=== PATIENT | female | born 1945 | race Caucasian/White ===

== ENCOUNTER 2022-08-02 14:17 | Day surgery (SDC) | payer MEDICARE, BC, SELFPAY ==
[2022-08-02 14:30] VITALS: BP 136/70; PULSE 82; RESP 18; TEMP 36.2; O2SAT 96; BMI 28.3
[2022-08-02 14:44] VITALS: BP 143/73; PULSE 83; RESP 18; O2SAT 97
[2022-08-02 14:45] VITALS: BP 143/73; PULSE 83; RESP 18; O2SAT 97
[2022-08-02 14:48] VITALS: BP 150/64; PULSE 77; RESP 18; O2SAT 96
--- NOTE | 2022-08-02 14:55 | P.PCN_ITS ---
Procedure Date: 08/02/22 Time: 14:45 Anesthesiologist:: Amrit aWlton CRNA Complications:: None Pre-procedure Diagnosis:: Left shoulder osteoarthritis Post-procedure Diagnosis:: Same. Indications for Procedure:: Patient is a very pleasant 76-year-old female that comes our clinic today with chronic left shoulder pain. Secondary to a left osteoarthritis. This has been chronic for her for quite some time. Procedure Details:: Procedure Details: Left shoulder intra-articular injection Informed consent was obtained risk and benefits of the procedure were explained to the patient. Patient was taken to the procedure room. The left shoulder was prepped using ChloraPrep. A 25-gauge needle was used first anteriorly, laterally, and then posteriorly to inject 10 mL bupivacaine 0.25% and Depo- Medrol 40 mg. Patient tolerated procedure well with no complications. Plan and Disposition:: Patient was discharged without incident.
== END 2022-08-02 14:48 | disposition home or self-care (01) ==
LOC: SC.PAINP 14:19
PROVIDERS: Visit Provider Nurse Anesthetist, Certified Registered
DX: M19.012 Primary osteoarthritis, left shoulder (principal); M25.512 Pain in left shoulder
CPT/HCPCS: 20610; J1040

== ENCOUNTER 2022-09-06 10:29 | Day surgery (SDC) | payer MEDICARE, BC, SELFPAY ==
[2022-09-06 10:41] VITALS: BP 146/68; PULSE 78; RESP 18; TEMP 36.2; O2SAT 95; BMI 28.8
[2022-09-06 10:52] VITALS: BP 141/59; PULSE 73; RESP 18; O2SAT 95
--- NOTE | 2022-09-06 10:52 | P.PCN_ITS ---
Procedure Date: 09/06/22 Time: 10:40 Anesthesiologist:: Amrit Walton CRNA Complications:: None Pre-procedure Diagnosis:: Osteoarthritis left shoulder. Post-procedure Diagnosis:: Same. Indications for Procedure:: Very pleasant 76-year-old female that comes our clinic today for repeat left i ntra-articular shoulder injection. Patient had left shoulder injected several weeks ago with 2 weeks of significant improvement in terms of her left shoulder pain. Patient has good strength in her left arm. However, patient has limited range of motion due to pain in the left shoulder. Procedure Details:: Details of the procedure explained to the patient. The patient taken the procedure room placed in sitting position. The area over the posterior shoulder joint was cleaned using chlorhexidine as a cleansing solution. Using a 25-gauge inch and half needle the left shoulder joint was accessed with ease from a posterior approach. After negative aspiration a cc of a solution containing 0.25% Marcaine +1% lidocaine and 40 mg Depo-Medrol was injected. Patient tolerated procedure without difficulty. No complications Plan and Disposition:: Patient was discharged without incident.
== END 2022-09-06 10:52 | disposition home or self-care (01) ==
PROVIDERS: Visit Provider Nurse Anesthetist, Certified Registered
DX: M19.012 Primary osteoarthritis, left shoulder (principal); M25.512 Pain in left shoulder
CPT/HCPCS: 20610; J1040

== ENCOUNTER 2023-08-31 08:39 | Outpatient (CLI) | payer MEDICARE, BC, SELFPAY ==
--- NOTE | 2023-08-31 08:46 | CT_ITS ---
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 A noncontrast coronary calcium scan was performed. A CT attenuation threshold of 130 Hounsfield units (HU) was used for the detection of calcium in contiguous voxels of 1 sq mm in area to be counted as individual lesions. Bolus tracking in the ascending aorta with a threshold of 180 HU was performed. Immediately afterwards, ECG synchronized cardiac CT was then performed from the cardiac base to apex using retrospective gating with ECG tube current modulation. A total of 85 mL of Isovue 370 mg/mL contrast medium was administered at 5 mL/sec followed by a saline flush using a biphasic injection protocol. A tube voltage of 120 KVp was used. The patient received the following medications prior to the cardiac CT. 25 mg of oral metoprolol 0.8 mg of sublingual nitroglycerin The average heart rate at the time of acquisition was 48 bpm and regular. Image Reconstruction Transaxial images were reconstructed at 0.67 mm slide thickness. Data was reviewed interactively on an advanced workstation capable of 2 and 3-dimensional displays in all conventional reconstruction formats, including multiplanar reformations, maximum intensity projections, curved multiplanar reformations, and volume rendered reconstructions. When applicable, selected routine images describing the relevant coronary anatomy and pathology were saved and sent to PACS. Complications None Technical Quality Overall image quality was good. Coronary artery opacification was adequate. Total DLP (Dose-Length Product) is 1844.0 mGy-cm. The reported value represents the total of one or more individual components during the CT acquisition of this date and at this time, and as such, the same value may appear in more than one CT report depending on the interpreting/reporting physicians. COMPARISON None FINDINGS CT Coronary Calcium Scoring LMA (Left Main Artery) = 32 LAD (Left Anterior Descending) = 25 LCX (Left Coronary Circumflex) = 33 RCA (Right Coronary Artery) = 0 Total Calcium Score = 90 using the AJ-130 method. The observed calcium score of 90 is at 54th percentile for subjects of the same age, sex, and race/ethnicity. The interpretation of the calcium heart score is based on the following continuum*: 0 = no calcified plaque detected (risk of coronary artery disease is very low ??? less than 5%) 1-10 = calcium detected in extremely minimal levels (risk of coronary diseases is still low ??? less than 10%) 11-100 = mild levels of plaque detected with certainty (mild or minimal narrowing of heart arteries is likely) 101-400 = definite,at least moderate levels of plaque detected (relatively high risk of a heart attack within 3-5 years) >401-999 = extensive levels of plaque detected (high risk of heart attack, high levels of vascular disease are present, high likelihood of at least one significant coronary narrowing) *The calcium heart score quantifies the burden of coronary calcification/plaque in the coronary arteries. The calcium heart score is not able to evaluate the presence or burden of non-calcified (i.e. soft) plaque. There is also identifiable calcification in ascending and descending thoracic aorta. Coronary CT Angiography The coronary arterial system is right dominant. Quantitative Stenosis Grading: Left Main (LM): The left main originates normally from the left sinus of Valsalva. The LM bifurcates into the left anterior descending artery and left circumflex artery. There is calcification noted at the ostial LM, but with no luminal stenosis. Left Anterior Descending (LAD) and Diagonal Branches: The LAD gives off 2 diagonal branch(es). There is calcification noted in the proximal LAD, but with no stenosis. There is no evidence of LAD-myocardial bridge. Left Circumflex (LCX) and Obtuse Marginals (OM): The LCX gives off 2 Obtuse Marginal (OM) branch(es). There is mixed calcified/noncalcified plaque noted in the proximal LCx with up to 25-49% luminal stenosis. Right Coronary Artery (RCA): The RCA originates normally from the right sinus of Valsalva. The RCA gives off a posterior descending artery (PDA) and posterolateral (PL) branches. The RCA and its branches are patent with no evidence of atherosclerosis. Non-Coronary Cardiac Findings: Analysis of the left ventricular (LV) structure and function was performed after 3-D reconstruction of the LV from axial images, with user-corrected automatic contouring for assessment of LV volumes and user-defined reconstruction from oblique planes for measurement of 3-D cardiac structure and function. -The left ventricle systolic function is normal. -There is no left atrial appendage filling defect. Two right pulmonary veins and two left pulmonary veins drain normally into the left atrium. -No pericardial thickening or calcification. -Central and branch pulmonary arteries in the [id number] are unremarkable. -Thoracic aorta within the visualized thoracic aortic-branches in the [id number] is unremarkable. Extracardiac Structures No significant extra-cardiac findings. Note, however, that this study is focused on the cardiac findings. IMPRESSION -Presence of coronary calcification with an Agatston score = 90 using the AJ-130 method. -The observed calcium score of 90 is at 54th percentile for subjects of the same age, sex, and race/ethnicity. -Mild atherosclerosis in the LM, LAD, and LCX, but no evidence of significant flow-limiting atherosclerosis. -CAD-RADS 2. Management recommendations per ACC/AHA guidelines*, as clinically appropriate. *Recommendations: CAD RADS 0: Reassurance. Consider non-atherosclerotic causes. CAD RADS 1: Consider non-atherosclerotic causes of chest pain. Consider preventive therapy and risk factor modification. CAD RADS 2: Consider non-atherosclerotic causes of chest pain. Consider preventive therapy and risk factor modification, particularly for patients with nonobstructive plaque in multiple segments. CAD RADS 3: Consider further functional testing. Consider symptom-guided anti-ischemic and preventive pharmacotherapy as well as risk factor modification per published guideline statements. CAD RADS 4A: Consider further functional testing or invasive coronary angiography with revascularization per published guideline statements. Consider symptom-guided anti-ischemic and preventive pharmacotherapy as well as risk factor modification per published guideline statements. CAD RADS 4B: Invasive coronary angiography recommended with revascularization per published guideline statements. Consider symptom-guided anti-ischemic and preventive pharmacotherapy as well as risk factor modification per published guideline statements. CAD RADS 5: Consider invasive angiography and/or viability assessment with revascularization per published guideline statements. Consider symptom-guided anti-ischemic and preventive pharmacotherapy as well as risk factor modification per published guideline statements. CRITICAL RESULT None COMMUNICATION Per this written report The coronary and cardiac findings of this CCTA were reviewed, reported, and signed by Reggie Mcelroy MD ([facility]) Conclusion Electronically signed by : Clarissa Mcelroy MD 08/31/2023 15:34:19
[2023-08-31 09:09] VITALS: BP 139/66; PULSE 65; RESP 18; TEMP 36.6; O2SAT 98; BMI 30.1
[2023-08-31] MEDS: METOPROLOL TARTRATE 25MG TABLET *IVABRADINE+METOPROLOL REGIMINE 25 MG PO (09:21)
[2023-08-31 09:31] LABS: Chloride 101 mmol/L (98-107); Potassium 3.8 mmoL/L (3.5-5.1); Sodium 137 mmol/L (136-145)
[2023-08-31 09:34] LABS: Anion Gap 8.8 mEq/L (5-15); Blood Urea Nitrogen 10 mg/dl (7-17); Carbon Dioxide 31 mmol/L (22.0-30.0); Creatinine Clearance Estimated 57 mL/min (50-200); Estimated Glomerular Filt Rate 81 ml/min (>60); GFR (African American) 98 ML/MIN (>60)
[2023-08-31 09:35] LABS: Calcium 9.7 mg/dl (8.4-10.2); Glucose 99 mg/dl (74-100)
[2023-08-31 09:55] VITALS: BP 129/100; PULSE 60; RESP 18; O2SAT 94
[2023-08-31] MEDS: NITROGLYCERIN 0.4MG SL TABLET 0.800000000000000044 MG SL (09:55)
[2023-08-31 10:00] VITALS: BP 95/60; PULSE 58; RESP 18; O2SAT 94
[2023-08-31 10:05] VITALS: BP 77/39; PULSE 50; RESP 18; O2SAT 94
[2023-08-31 10:15] VITALS: BP 90/46; PULSE 50; RESP 18; O2SAT 95
[2023-08-31] MEDS: IOPAMIDOL-370 (76%);100ML BOTTLE 85 ML IV (10:20)
[2023-08-31] MEDS: 0.9 % SODIUM CHLORIDE 50 ML VIAL IV (10:20)
[2023-08-31] MEDS: SODIUM CHLORIDE 0.9% 10ML SYR (RAD ONLY) 10 ML IV (10:20)
[2023-08-31 10:25] VITALS: BP 109/57; PULSE 57; RESP 18; O2SAT 97
== END 2023-08-31 23:59 | disposition home or self-care (01) ==
PROVIDERS: PCP Nurse Practitioner Family; Visit Provider Nurse Practitioner Family
DX: R94.39 Abnormal result of other cardiovascular function study (principal)
CPT/HCPCS: 75571; 75574; 80048; Q9967